=== PATIENT | female | born 1955 | race Caucasian/White ===

== ENCOUNTER → 2016-12-01 | Day surgery (SDC) | payer MEDICARE, OTHER ==
[~2016-12-01] MED LIST: ABILIFY PO; ADVAIR INH; ALBUTEROL; ALBUTEROL17 GM INH; ALBUTEROL2.5 MG/0.5 INH; ALPRAZOLAM PO; ALPRAZOLAM0.5 MG PO; AMLODIPINE BESY10 MG PO; AMLODIPINE BESYL5 MG PO; AMLODIPINE-VAL1 EAC1 PO; AMOXAPINE100 MG PO; ANEXSIA 7.5/3251 TA1 PO; APAP500 MG PO; ASPERDRINK81 MG PO; ASPIRIN EC81 M1 PO; ASPIRIN81 M1 PO; AVELOX400 M1 PO; AZITHROMYCIN250 MG PO; B COMPLEX1 CA1 PO; B COMPLEX1 TAB PO; BUPROPION HCL75 MG PO; BUSPIRONE HCL10 MG PO; CALCIUM + D 6001 TA1 PO; CALCIUM CITRAT1 EAC4 PO; CALCIUM CITRATE1 T11 PO; CALCIUM CITRATE1 T15 PO; CALTRATE 600+D PO; CARAFATE1 G PO; CHANTIX1 MG BC; CLONAZEPAM0.5 MG PO; COMBIVENT INH14.7 GM INH; DICYCLOMINE HCL10 MG PO; DICYCLOMINE HCL20 MG PO; DILTIAZEM 24HR120 M1 PO; DILTIAZEM 24HR360 M1 PO; EXFORGE HCT 101 EAC2 PO; FLAGYL PO; FLEXERIL10 MG PO; FLUOXETINE HCL20 M1 PO; FUROSEMIDE40 MG PO; GABAPENTIN300 M2 PO; GUAIFENESIN600 MG PO; HYDRALAZINE HCL25 MG PO; HYDROCODON-ACE1 EAC5 PO; HYZAAR 100-25 T1 TA1 PO; IBUPROFEN800 MG PO; INVEGA PO; ISOSORBIDE MONO30 M1 PO; KEFLEX500 MG PO; LEVAQUIN PO; LIPITOR PO; LIPITOR40 MG PO; LISINOPRIL PO; LODINE PO; LOPRESSOR PO; LORTAB 10-5001 EACH PO; LORTAB 10/500 T1 TAB PO; LORTAB 101 TAB 10/5 PO; LORTAB 5/500 TA1 TA1 PO; LORTAB 7.5-5001 TAB PO; LOVAZA1 G PO; MEDROL4 MG/DOSE- PO; MOBIC PO; MOTRIN400 MG PO; MUCINEX D ER T1 EAC1 PO; MULTI VITAMIN1 EACH PO; MULTI-DAY VITA1 EACH PO; NEURONTIN; NEXIUM PO; NITROGLYGERIN0.4 MG SL; NORCO 10-325 TA1 TAB PO; NORVASC PO; NORVASC10 MG PO; OMEGA 3 FISH OI1 CAP PO; OMEPRAZOLE20 M1 PO; PAMELOR25 M2 PO; PANTOPRAZOLE SO40 MG PO; PERCOCET 5-3251 TAB; PERCOCET 5-3251 TAB PO; PHENERGAN PO; PHENERGAN25 M1 PO; PHENERGAN25 MG PO; PHENTERMINE PO; PREDNISOLO15 MG/5 ML PO; PREDNISONE PO; PREDNISONE10 MG PO; PRESTIQ PO; PRILOSEC PO; PRISTIQ100 MG PO; PRISTIQ50 MG PO; PROTONIX PO; PROZAC PO; SEROQUEL; SEROQUEL PO; SERTRALINE HCL100 M1 PO; SOMA PO; SPIRIVA18 MCG INH; SPIRIVA18 MCG PO; STERAPRED5 MG/DOSE1 PO; SYMBICORT; SYMBICORT 160/4.6 GM INH; SYMBICORT INH; TESSALON200 MG PO; TIZANIDINE HCL2 M1 PO; TOPAMAX; TOPAMAX PO; TORADOL10 MG PO; TRAZODONE PO; TRIAMTERENE-HC1 EAC1 PO; VALIUM10 MG PO; VALSARTAN-HCTZ1 EAC1 PO; VIBRAMYCIN100 M1 PO; VITAL-D RX TABL1 TAB PO; WELLBUTRIN; WELLBUTRIN100 MG PO; XANAX0.5 MG PO; ZANAFLEX PO; ZEGERID40 MG/PKT PO; ZITHROMAX1 G/PKT PO
--- NOTE | ~2016-12-01 | OR ---
Unit #: [id number] #: [id number] Patient: ROSANNA FELDMAN [id number] [address] [place], [place] [address] [id number] O MR#: [id number] NAME: ROSANNA FELDMAN ROOM: Date of Procedure: 12/01/2016 Admission Date: 12/01/2016 Surgeon: Dallin Karimi M.D. : 1955 Attending Physician: Dallin Karimi M.D. Primary Care Physician: Deyanira Nickerson OPERATIVE REPORT PROCEDURE PERFORMED Colonoscopy with snare polypectomy. INDICATIONS FOR PROCEDURE The patient with history of colon polyps and also with history of colitis and stricture in the right colon, undergoing a repeat evaluation to look for healing and further polyps. MEDICATIONS Monitored anesthesia. POSTOPERATIVE FINDINGS 1. Polyp, ascending colon, 1 cm flat, snared and sent for histopathology. 2. Ascending colon shows a stricture. There was a small ulceration at the level of the stricture, however it was opened enough for the scope to pass easily. 3. Rest of the colonic mucosa was normal. Diverticulosis noted. 4. Small hemorrhoids. PLAN Follow up on the pathology report. If the patient gets symptomatic of bile obstruction, surgical options has to be considered. DESCRIPTION OF PROCEDURE The patient was explained of the procedure, risks, and benefits along with the risks and benefits of anesthesia. She was brought to the endoscopy room. Propofol anesthesia was given. Rectal exam was done, which was normal. Colonoscope was lubricated, passed up the rectum, advanced under direct vision all the way to the cecum. Cecum was identified by the ileocecal valve and the appendiceal orifice. The ascending colon polyp was snared and sent for histopathology. Stricture was noted as described. I continued to pull the scope out. Rest of the mucosa was normal and healthy. I retroflexed in the rectum, small hemorrhoids were seen. Scope was gently pulled out. She tolerated it well. No major complications seen. Dictated by... Virginia Rae/natl Unit #: [id number] #: [id number] Patient: ROSANNA FELDMAN TD: 12/02/2016 11:25 JOB #: [id number] CC: Berny Mccallum M.D. OPERATIVE REPORT Page 1 of 1 X Dallin Karimi MD PROCEDURE OPERATIVE NOTE
== END | disposition home or self-care (01) ==
LOC: COPS 06:54
DX: D12.2 Benign neoplasm of ascending colon (principal); K56.69 Other intestinal obstruction; K63.3 Ulcer of intestine; K57.30 Diverticulosis of large intestine without perforation or abscess without bleeding; K64.9 Unspecified hemorrhoids; Z86.010 Personal history of colon polyps; Z87.19 Personal history of other diseases of the digestive system; K21.9 Gastro-esophageal reflux disease without esophagitis; J44.9 Chronic obstructive pulmonary disease, unspecified; Z90.710 Acquired absence of both cervix and uterus; Z88.5 Allergy status to narcotic agent
CPT/HCPCS: 88302

== ENCOUNTER → 2017-01-05 | Outpatient (CLI) | payer MEDICARE, OTHER ==
--- NOTE | ~2017-01-05 | EKG ---
PATIENT: ROSANNA FELDMAN UNIT #: [id number] Ventricular Rate: 76 BPM Atrial Rate: 76 BPM P-R Interval: 152 ms QRS Duration: 86 ms Q-T Interval: 400 ms QTC Calculation(Bezet): 450 ms P [place]: 74 degrees Calculated R [place]: 84 degrees Calculated T [place]: 67 degrees Diagnosis Line: Normal sinus rhythm Diagnosis Line: Normal ECG Diagnosis Line: When compared with ECG of 17-MAY-2016 16:47, Diagnosis Line: No significant change was found Diagnosis Line: Confirmed by SANDY MARTINO MD ([id number]) on Diagnosis Line: 01/05/2017 11:25:09 PM INTERPRETING : DONNIE
[2017-01-05 11:41] LABS: HEMATOCRIT 43.8 % (35.0-45.0); MEAN CORPUSCULAR HEMOGLOBIN 27.4 PG (28-34); MEAN CORPUSCULAR HGB CONC 31.9 g/dL (30-36); MEAN PLATELET VOLUME 6.9 FL (6.5-11.5); RED BLOOD COUNT 5.09 X10e (3.90-5.30); RED CELL DISTRIBUTION WIDTH 14.6 % (11.0-15.5); WHITE BLOOD COUNT 7.7 X10e3 (4.0-10.5)
[2017-01-05 12:51] LABS: BUN/CREATININE RATIO 24.28; CALCIUM SERUM 10.2 mg/dL (8.4-10.2); CREATININE SERUM 0.7 mg/dL (0.6-1.4); GLOM FILT RATE Estimated 94.8 mL/min (>60)
[2017-01-05 12:59] LABS: POTASSIUM 5.9 mmol/L (3.5-5.1)
== END | disposition home or self-care (01) ==
LOC: CAMB 10:26
PROVIDERS: Orthopaedic Surgery
DX: Z01.818 Encounter for other preprocedural examination (principal); M92.61 Juvenile osteochondrosis of tarsus, right ankle
CPT/HCPCS: 36415; 80048; 85027; 93005

== ENCOUNTER → 2017-01-09 | Day surgery (SDC) | payer MEDICARE, OTHER ==
--- NOTE | ~2017-01-09 | OR ---
Unit #: [id number] #: [id number] Patient: ROSANNA RIVAS [id number] [address] [address] [id number] O MR#: [id number] NAME: ROSANNA RIVAS. ROOM: Date of Procedure: 01/10/2017 Admission Date: 01/09/2017 Surgeon: Rodrigue Hager M.D. : 1955 Community Outreach Coordinator(s): None. Attending Physician: Rodrigue Hager M.D. Primary Care Physician: Deyanira Nickerson Aprn PROCEDURE OPERATIVE NOTE PREOPERATIVE DIAGNOSES 1. Painful retained right calcaneus hardware. 2. 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 POSTOPERATIVE DIAGNOSIS 1. Painful retained right calcaneus hardware. 2. 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 Right calcaneus hardware removal. 2. Right calcaneal Michael deformity ostectomy. ANESTHESIA General endotracheal. COMPLICATIONS None. SPECIMENS None. DRAINS None. SURGICAL COMPLAINTS None. INDICATIONS FOR PROCEDURE Ms. Rivas is a 61-year-old female who roughly six months ago had a tongue type calcaneus fracture that was treated by my partner with ORIF. She had some residual deformity with significant pressure on the skin causing pain. The screws were also noted to cause discomfort in the patient's calcaneus. The fracture was well healed. The patient wished to have these screws surgical removed and the deformity shaved down. Risk, benefits, and alternatives of surgery were discussed with patient. Informed consent was obtained. The risks include but are not limited to infection, bleeding, nerve injury, blood clots, risk associated with anesthesia, need for further surgery, possibly . DETAILS OF PROCEDURE On 01/09/2017, the patient was seen in preoperative holding area where her surgical site is marked. Preoperative antibiotics were received. H and P Unit #: [id number] #: [id number] Patient: ROSANNA RIVAS and consent updated. She was taken to the operating room and provided general anesthesia. She was moved to the prone position carefully. All bony prominences were well padded. Head and neck kept in neutral position at all times. Right lower extremity was then prepped and draped in typical sterile fashion. Time-out performed confirming the correct surgical site and procedure. Esmarch used to exsanguinate the leg and a calf tourniquet was inflated to 250 mmHg. The prior posterior lateral calcaneal scar was incised. Full thickness down to bone to preserve skin and soft tissues. First screw was identified. It was subsequently removed with the washer. Fluoroscopy was brought in and the second screw was localized. A percutaneous incision was made over the second screw through the prior scar. Then the screw was again removed in a similar fashion. These were two 6.5 mm screws with washers. These were sent to pathology and will be given to the patient after analysis. At this point the hardware was removed. Final images were taken. The full thickness skin and soft tissue had been elevated through the posterolateral incision. The large Michael deformity noted. A bunion blade saw was used to resect the protruding calcaneus deformity, flush with the inferior portion of the calcaneus. Saw was taken all of the way across, followed by completion with an osteotome. Rongeur was used to remove the bone fragment. The edges of the residual bone were smoothed off with a rongeur. There was still some thickening superior at the Achilles insert due to prior scar tissue. This was not addressed due to the calcaneal insertion. Once the ostectomy was complete, the wound was thoroughly irrigated. Tourniquet released. Hemostasis noted. Deep tissue closed with 3-0 Vicryl suture, followed by 3.0 Nylon horizontal mattress sutures for the skin. The Xeroform, 4 x 4's, ABD pads, cast padding and well padded posterior splint was placed. The patient was subsequently awakened from general anesthesia in stable condition. She was taken to the PACU postoperatively. POSTOPERATIVE PLAN The patient will be weightbearing as tolerated with a splint on. She will keep the wound clean and dry. She will take a full dose of aspirin for two weeks and then can change back to her baby aspirin. She will follow up in the office in 10 to 14 days. No complications encountered during this surgical procedure. Dictated by... Rodrigue Hager M.D. FELICIA/yolanda TD: 01/10/2017 09:42 JOB #: [id number] PROCEDURE OPERATIVE NOTE Page 1 of 1 X X PROCEDURE OPERATIVE NOTE
--- NOTE | ~2017-01-09 | CR18 ---
[facility] A Service of [facility] & [facility] RADIOLOGY TEXT RESULTS PATIENT: ROSANNA FELDMAN LOCATION: [facility] : [birth year] UNIT #: [id number] AGE: [address]: Rodrigue Hager MD SEX: F ORDER DR: [id number] [facility] [address] [place], [place] [address] [id number] O MR#: [id number] Acc #: [id number] NAME: ROSANNA FELDMAN : 1955 SEX: F STUDY DATE/TIME: 01/09/2017 9:48 UNIT: [facility] ROOM: STUDY DESCRIPTION: CR Ankle 2 Views Rt Attending Physician: Rodrigue Hager M.D. Ordering Physician: Rodrigue Hager M.D. MEDICAL IMAGING REPORT This report is preliminary unless electronic signature is present EXAM Right ankle 01/09/2017 HISTORY 61-year-old female status post intraoperative hardware removal today. COMPARISON Right ankle 05/17/2016. FINDINGS 2 intraoperative fluoroscopic spot images demonstrate the ankle status post hardware removal. Images were interpreted intraoperatively by the attending surgeon. Total fluoroscopic time 0.18 seconds. Dictated by... Shravan Perez M.D. THIS IS AN ELECTRONICALLY VERIFIED REPORT Shravan Perez M.D. at 01/09/2017 6:38 PM MELANIE/vita TD: 01/09/2017 18:11 JOB #: [id number] MEDICAL IMAGING REPORT Page 1 of 1 COPY
== END | disposition home or self-care (01) ==
LOC: CSUR 06:51
DX: M92.61 Juvenile osteochondrosis of tarsus, right ankle (principal); M79.671 Pain in right foot; I10 Essential (primary) hypertension; E78.5 Hyperlipidemia, unspecified; J44.9 Chronic obstructive pulmonary disease, unspecified; E66.9 Obesity, unspecified; K21.9 Gastro-esophageal reflux disease without esophagitis; F17.210 Nicotine dependence, cigarettes, uncomplicated; Z68.29 Body mass index [BMI] 29.0-29.9, adult; Z85.43 Personal history of malignant neoplasm of ovary; Z87.01 Personal history of pneumonia (recurrent); Z88.5 Allergy status to narcotic agent; Z88.6 Allergy status to analgesic agent; Z88.8 Allergy status to other drugs, medicaments and biological substances; Z79.82 Long term (current) use of aspirin; Z79.891 Long term (current) use of opiate analgesic; Z79.899 Other long term (current) drug therapy; Z90.710 Acquired absence of both cervix and uterus; Z98.890 Other specified postprocedural states
CPT/HCPCS: 73600; 76000; 84132; 88300; J0330; J0690; J1885; J2250; J2710; J2765; J3010

== ENCOUNTER 2017-01-13 21:50 | Inpatient (IN) | payer MEDICARE, OTHER ==
--- NOTE | ~2017-01-13 | CR72 ---
[facility] A Service of [facility] & [facility] RADIOLOGY TEXT RESULTS PATIENT: ROSANNA FELDMAN LOCATION: [facility] 328-01 : [birth year] UNIT #: [id number] AGE: [address]: Julieta Baker MD SEX: F ORDER DR: [id number] [facility] [address] [place], [place] [address] [id number] I MR#: [id number] Acc #: [id number] NAME: ROSANNA FELDMAN : 1955 SEX: F STUDY DATE/TIME: 01/13/2017 21:48 UNIT: [address] ROOM: [facility] STUDY DESCRIPTION: CR Chest Single View Portable Attending Physician: Nba Felton M.D. Ordering Physician: Paramjit Kirkland M.D. Primary Care Physician: Deyanira Nickerson Aprn MEDICAL IMAGING REPORT This report is preliminary unless electronic signature is present EXAM Portable chest 01/13/2017 HISTORY Shortness of air, chronic back pain for 3 days. COMPARISON 03/12/2016 FINDINGS A portable view of the chest was obtained. Heart size and vascularity are normal. The lungs are clear and the bones are unremarkable. IMPRESSION No active disease. Dictated by... Cornelio Dior M.D. THIS IS AN ELECTRONICALLY VERIFIED REPORT Cornelio Dior M.D. at 01/15/2017 7:14 AM AMARILIS/lizeth TD: 01/14/2017 00:43 JOB #: [id number] MEDICAL IMAGING REPORT Page 1 of 1 COPY
--- NOTE | ~2017-01-13 | EKG ---
PATIENT: ROSANNA FELDMAN UNIT #: [id number] Ventricular Rate: 96 BPM Atrial Rate: 96 BPM P-R Interval: 152 ms QRS Duration: 88 ms Q-T Interval: 368 ms QTC Calculation(Bezet): 464 ms P [place]: 55 degrees Calculated R [place]: 58 degrees Calculated T [place]: 46 degrees Diagnosis Line: Sinus rhythm with Premature atrial complexes Diagnosis Line: Otherwise normal ECG Diagnosis Line: No previous ECGs available Diagnosis Line: Confirmed by JOAQUIN GODINEZ MD ([id number]) on 01/14/2017 Diagnosis Line: 4:09:48 PM INTERPRETING MD: HERBERT WAGNER
--- NOTE | ~2017-01-13 | CT16 ---
[facility] A Service [facility] RADIOLOGY TEXT RESULTS PATIENT: ROSANNA FELDMAN LOCATION: [facility] 328-01 : [birth year] UNIT #: [id number] AGE: [address]: Nba Felton MD SEX: F ORDER DR: [id number] [facility] [address] [place], [place] [address] [id number] I MR#: [id number] Acc #: [id number] NAME: ROSANNA FELDMAN. : 1955 SEX: F STUDY DATE/TIME: 01/13/2017 22:46 UNIT: [address] ROOM: [facility] STUDY DESCRIPTION: CT Angio Chest for PE Attending Physician: Nba Felton M.D. Ordering Physician: Paramjit Kirkland M.D. Primary Care Physician: Deyanira Nickerson Aprn MEDICAL IMAGING REPORT This report is preliminary unless electronic signature is present EXAM CT chest PE protocol. HISTORY Dyspnea. Mild chest pain, hypoxia symptoms began 4 days ago patient had right foot surgery 3-[address] chest 03/12/[address] exam was performed with one or more of the following radiation dose reduction techniques: automatic control, adjustment of mA and/or kV according to patient size, and iterative reconstruction. FINDINGS Axial images performed through the chest following IV contrast. 3-D coronal and sagittal reconstructed images reviewed at a workstation. Pulmonary parenchymal changes compatible with emphysema. A small amount of patchy pneumonitis left upper lobe. No effusions. Small amount of right basilar atelectasis. Trachea and bronchi unremarkable. No pulmonary embolus. Heart size within normal limits. Shotty adenopathy. Upper abdomen unremarkable. Osseous structures and thoracic inlet appear normal. IMPRESSION 1. Moderate paraseptal emphysema with a small amount of patchy pneumonitis left upper lobe could be infectious in etiology as well as a small focus in the superior segment right lower lobe. There is also a small amount of lingular right middle lobe and basilar atelectasis. [facility] A Service [facility] RADIOLOGY TEXT RESULTS PATIENT: ROSANNA FELDMAN [id number] : [birth year] UNIT #: [id number] AGE: [address]: Nba Felton MD SEX: F ORDER DR: 2. No evidence of pulmonary embolus. Dictated by... Sissy Hurd M.D. THIS IS AN ELECTRONICALLY VERIFIED REPORT Sissy Hurd M.D. at 01/14/2017 5:57 AM NAKUL/lizeth TD: 01/14/2017 01:57 JOB #: [id number] MEDICAL IMAGING REPORT Page 1 of 1 COPY
--- NOTE | ~2017-01-13 | HP ---
Unit #: [id number] #: [id number] Patient: ROSANNA FELDMAN [id number] [address] [place], [place] [address] [id number] I MR#: [id number] NAME: ROSANNA FELDMAN. ROOM: 328 Age: 61 Sex: F Admission Date: 01/13/2017 : 1955 Attending Physician: Julieta Baker M.D. Primary Care Physician: Deyanira Nickerson Aprn HISTORY AND PHYSICAL CHIEF COMPLAINT Shortness of breath for the last three days, recent right foot surgery. HISTORY OF PRESENT ILLNESS This is a 61-year-old lady with a past medical history of chronic obstructive pulmonary disease, history of bipolar anxiety, Burnham disease, hyperlipidemia, hypertension, irritable bowel syndrome, chronic back pain, fibromyalgia, history of fall with right calcaneus and distal fibular fracture status post ORIF in 05/2016. She had a recent right foot surgery last Sunday for removal of right calcaneus hardware and right calcaneus osteotomy. She came to the emergency room with a chief complaint of shortness of breath, which she describes the shortness of breath got worse over three days. She has been using a nebulizer inhaler at home with no improvement. She has been coughing mostly dry and wheezing. She was found to have diffuse wheezing in the emergency room. She has eventually been admitted for acute exacerbation of chronic obstructive pulmonary disease. She was found on ABG to be hypoxic. She denies chest pain. She denies nausea and vomiting, abdominal pain, diarrhea, constipation, or other complaints. She said she has been having dyspnea on exertion. She cannot walk a few steps without shortness of breath. She has been wheezing. She denies any other complaints. No headache. No loss of consciousness. PAST MEDICAL HISTORY 1. History of chronic obstructive pulmonary disease, non oxygen dependent. 2. Hypertension. 3. Hyperlipidemia. 4. History of bipolar disorder. 5. History of anxiety. 6. History of Burnham esophagus. 7. History of echocardiogram in the past in 2010 showing ejection fraction of 55% with mild mitral regurgitation. 8. History of irritable bowel syndrome. 9. Chronic back pain/fibromyalgia. PAST SURGICAL HISTORY 1. Right arm surgery. 2. Left clavicle surgery. 3. Bilateral carpal tunnel surgery. 4. Cervical lymph node excision. 5. History of hysterectomy. 6. History of fall with right calcaneus and right distal radius fracture status post ORIF in 05/2016. Unit #: [id number] #: [id number] Patient: ROSANNA FELDMAN. Recently she had a right calcaneus hardware removal and osteotomy on 01/09/2017. SOCIAL HISTORY The patient lives alone. She smokes at least a pack of cigarettes daily. She drinks at least two 32-ounces beers daily. She has a history of marijuana and cocaine in the past per old records. ALLERGIES Oxycodone, morphine, codeine. HOME MEDICATIONS 1. Fluoxetine 20 mg b.i.d. 2. Ventolin 2 puffs q.4 h. p.r.n. 3. Spiriva 1 HandiHaler daily. 4. Hydrocodone 10/325 mg 1 tablet daily. 5. BuSpar 10 mg t.i.d. 6. Amlodipine/losartan 10/160 one tablet daily. 7. Wellbutrin 100 mg daily. 8. Dicyclomine 10 mg q.i.d. p.r.n. 9. Phenergan 25 mg t.i.d. p.r.n. 10. Amlodipine 5 mg daily. 11. Protonix 40 mg b.i.d. 12. Multivitamin 1 tablet daily. 13. Aspirin 81 mg daily. 14. Flexeril 10 mg t.i.d. p.r.n. 15. Isosorbide 30 mg daily. 16. Lipitor 40 mg at bedtime. 17. Symbicort 2 puffs daily. REVIEW OF SYSTEMS CONSTITUTIONAL: No fever. No chills. CARDIOVASCULAR: No chest pain. No diaphoresis. PULMONARY: She reports cough, shortness of breath, wheezing. GENITOURINARY: No dysuria. No urgency. GI: No nausea, vomiting, diarrhea, constipation. NEUROLOGIC: No headache. No dizziness. SKIN: No rash. MUSCULOSKELETAL: She reports chronic back pain. Right lower leg pain. PHYSICAL EXAMINATION GENERAL: Middle-aged female lying in the bed comfortably. Currently not in any distress. She is alert, awake, oriented times three. VITALS: Currently temperature 98.3, heart rate 105, respiratory rate 15, blood pressure 114/99. HEENT: Pupils equal and reactive to light and accommodation. Head is normocephalic, atraumatic. NECK: Supple. No jugular venous distension. No cardiomegaly. No thyromegaly. LUNGS: Poor air entry with diffuse bilateral wheeze. HEART: S1 and S2. Regular rate and rhythm. Tachycardia. ABDOMEN: Soft, nontender and nondistended. Bowel sounds positive. EXTREMITIES: Right lower leg is positive in a cast. Left leg no cyanosis, clubbing or edema. NEUROLOGIC: No focal neurologic deficits. SKIN: No rash. PSYCHIATRIC: Normal mood and affect. Unit #: [id number] #: [id number] Patient: ROSANNA FELDMAN DIAGNOSTIC STUDIES LABORATORY: Lactic acid level is 0.8. Chemistry, sodium 138, potassium 3.7, chloride 100, glucose 107, BUN 10, creatinine 0.6, LFTs within normal limits. INR 1, BNP 39. ABG, pH 7.42, pO2 61, CO2 28, white blood cell count 7, hemoglobin 12, hematocrit 37, platelets 298. ASSESSMENT/PLAN 1. Acute exacerbation of chronic obstructive pulmonary disease with acute hypoxia. She does not have oxygen at home. Will admit the patient and start on oxygen to keep saturations more than 90. Start on nebulizer, IV Solu-Medrol, IV Levaquin, Mucinex. Will evaluate in a day or two for home O2. 2. History of hypertension. 3. History of hyperlipidemia in the past, currently sodium is 138. 4. History of bipolar anxiety. 5. History of Burnham disease. 6. Hyperlipidemia. 7. Recent right calcaneus hardware removal and right calcaneus osteotomy on Sunday. 8. Irritable bowel syndrome. 9. Chronic back pain/fibromyalgia. 10. Tobacco abuse. 11. Alcohol abuse. 12. DVT prophylaxis. Will place the patient on Lovenox. Will get D-dimer and if abnormal D-dimer will do a CT of the chest PE protocol. Dictated by Marcus Paniagua M.D. Amena TD: 01/14/2017 07:09 JOB #: [id number] HISTORY AND PHYSICAL Page 1 of 1 X X HISTORY AND PHYSICAL
--- NOTE | ~2017-01-13 | DS ---
Unit #: [id number] #: [id number] Patient: ROSANNA FELDMAN [id number] [address] [place], [place] [address] [id number] I MR#: [id number] NAME: ROSANNA FELDMAN. ROOM: [facility] Age: 61 Sex: F Admission Date: 01/13/2017 : 1955 Discharge Date: 01/15/2017 Attending Physician: Niraj Ly M.D. Primary Care Physician: Deyanira Nickerson DISCHARGE SUMMARY ADMITTING DIAGNOSIS Acute hypoxic respiratory failure. DISCHARGE DIAGNOSES 1. Acute hypoxic respiratory failure, secondary to chronic obstructive pulmonary disease exacerbation. 2. History of bipolar disorder. 3. History of anxiety. 4. History of Burnham's. 5. History of hyperlipidemia. 6. Hypertension. 7. Irritable bowel syndrome. 8. Chronic pain syndrome. 9. History of fall with recent right calcaneal and right fibula fracture, status post open reduction internal fixation in 2005, now nail removed. HISTORY OF PRESENT ILLNESS The patient is a 61-year-old obese lady, who recently had her nails removed in her right foot, presented to the emergency room with a chief complaint of shortness of breath on the 6th. HOSPITAL COURSE She was started on steroids, breathing treatments. She was also evaluated for a PE with a CT scan. CT of the chest was negative for any PE. She feels clinically better. She says her breathing is improving. She wants to go home. I requested her to follow with her primary care as an outpatient, ambulate as possible. She is a chronic smoker. I requested her to consider to quit smoking and will discharge her on tapering dose of oral steroids. She is saturating 93% on room air. PHYSICAL EXAMINATION On the day of the discharge, her physical examination: VITAL SIGNS: Temperature 97.6, pulse 103, respirations 18, blood pressure 163/97. GENERAL: Patient is alert, oriented x3. Lying in the bed in no acute distress. HEENT: Normocephalic and atraumatic. No icterus. PERRLA. Extraocular muscles intact. NECK: Supple. No JVD. HEART: S1, S2. Regular rate and rhythm. CHEST: Bilateral equal air entry. Clear to auscultation. ABDOMEN: Soft, nontender. EXTREMITIES: No edema. Normal pulses. On the right foot, she does still Unit #: [id number] #: [id number] Patient: ROSANNA FELDMAN have a cast in place. DISCHARGE MEDICATIONS 1. Prednisone tapering dose. 2. Zithromax 250 mg p.o. daily for three more days. These are the only two new medications. She will be continuing her rest of the home medications includin. Albuterol two puffs q.4 p.r.n. for shortness of breath. 2. Symbicort 160/4.5 mcg two puffs daily. 3. Spiriva 18 mcg inhalation daily. 4. Wellbutrin 100 mg daily. 5. Prozac 20 mg daily. 6. Phenergan 25 mg p.o. daily p.r.n. for nausea. Kindly note, I am not giving any prescription. She will get it from her primary care. 7. Dicyclomine 10 mg q.6 hours p.r.n. 8. BuSpar 10 mg t.i.d. 9. Norvasc 5 mg daily. 10. Amlodipine/Valsartan 10/160 mg one tab p.o. in the morning. 11. Mucinex over the counter 600 mg one tab four twice a day. 12. Lipitor 40 mg daily. 13. Multivitamin one capsule p.o. daily. 14. Aspirin 81 mg daily. 15. Hydrocodone/Tylenol 10/325 one tab p.o. b.i.d. Kindly note, I am not giving any prescription. She will get it from her primary care for the narcotics. 16. Protonix 40 mg daily. 17. Flexeril 10 mg p.o. three times a day. 18. Imdur 30 mg p.o. in the morning. FOLLOWUP She is instructed to follow with her primary care and quit smoking. Total time spent in her care, 35 minutes. Dictated by... Niraj Ly M.D. Ruddy TD: 01/15/2017 12:05 JOB #: [id number] DISCHARGE SUMMARY Page 1 of 1 X X DISCHARGE SUMMARY
[2017-01-13 21:41] LABS: BASOPHIL# 0.1 X10e3 (0-0.3); BASOPHIL% 0.9 % (0-2.5); EOSINOPHIL# 0.2 X10e3 (0-0.7); EOSINOPHIL% 2.2 % (0.0-7.0); HEMATOCRIT 37.9 % (35.0-45.0); HEMOGLOBIN 12.4 gm/dL (12.0-16.0); LYMPHOCYTE% 26.4 % (17.0-45.0); MEAN CELL VOLUME 84.3 FL (83-96); MEAN CORPUSCULAR HEMOGLOBIN 27.7 PG (28-34); MEAN CORPUSCULAR HGB CONC 32.8 g/dL (30-36); MEAN PLATELET VOLUME 6.7 FL (6.5-11.5); MONOCYTE# 0.5 X10e3 (0-1.0); MONOCYTE% 6.7 % (3.0-12.0); NEUTROPHIL# 4.9 X10e3 (1.5-7.1); NEUTROPHIL% 63.8 % (40-75); PLATELET COUNT 298 X10e3 (140-420); RED BLOOD COUNT 4.49 X10e (3.90-5.30); RED CELL DISTRIBUTION WIDTH 14.6 % (11.0-15.5); WHITE BLOOD COUNT 7.7 X10e3 (4.0-10.5)
[2017-01-13 21:45] LABS: DIFF IND NO
[~2017-01-13 21:50] MED LIST changes: -AZITHROMYCIN250 MG PO; -MUCINEX D ER T1 EAC1 PO; -PREDNISONE10 MG PO
[2017-01-13 21:56] LABS: PARTIAL THROMBOPLASTIN TIME 25.9 SECONDS (23.5-31.3)
[2017-01-13 22:02] LABS: ARTERIAL BLD GAS O2 SATURATION 85.6 % (90.0-100.0); ARTERIAL BLOOD GAS CARBOXY HB 4.9 %sat (0.0-9.0); ARTERIAL BLOOD GAS HCO3 28.8 mmol/L; ARTERIAL BLOOD GAS PCO2 44.2 mmHg (35.0-45.0); ARTERIAL BLOOD GAS pH 7.421 (7.350-7.450)
[2017-01-13 22:03] LABS: ARTERIAL BLOOD GAS ALLEN TEST NORMAL; ARTERIAL BLOOD GAS ART SITE RIGHT RADIAL; ARTERIAL BLOOD GAS DELIVERY NASAL CANNULA; ARTERIAL BLOOD GAS PO2 61.5 mmHg (80.0-100); ARTERIAL DRAW? YES
[2017-01-13 22:11] LABS: BILIRUBIN, DIRECT 0.1 mg/dL (0.0-0.2); BILIRUBIN,INDIRECT 0.5 mg/dL (0.0-0.9); BILIRUBIN,TOTAL 0.6 mg/dL (0.2-2.0); BUN/CREATININE RATIO 16.66; CALCIUM SERUM 9.1 mg/dL (8.4-10.2); CREATININE SERUM 0.6 mg/dL (0.6-1.4); GLOM FILT RATE Estimated 99.8 mL/min (>60); POTASSIUM 3.7 mmol/L (3.5-5.1); PROTEIN TOTAL SERUM 7.5 g/dL (6.0-8.3)
[2017-01-13 22:45] LABS: POC - CKMB 1.5 ng/mL (0.0-7.9); POC - TROPONIN <0.05 ng/mL (<=0.05)
[2017-01-13 23:02] LABS: POC - CKMB 1.2 ng/mL (0.0-7.9); POC - TROPONIN <0.05 ng/mL (<=0.05)
[2017-01-15 06:15] LABS: BUN/CREATININE RATIO 18.33; CALCIUM SERUM 9.1 mg/dL (8.4-10.2); CREATININE SERUM 0.6 mg/dL (0.6-1.4); GLOM FILT RATE Estimated 99.8 mL/min (>60); POTASSIUM 3.9 mmol/L (3.5-5.1)
[2017-01-15] MEDS ORDERED: MUCINEX D ER T1 EAC1 PO (12:55)
[2017-01-15] MEDS ORDERED: PREDNISONE10 MG PO (12:57)
[2017-01-15] MEDS ORDERED: AZITHROMYCIN250 MG PO (13:03)
== END 2017-01-15 14:03 | disposition home or self-care (01) | DRG 189 ==
LOC: CED 21:50 → CEDOF 22:45 → C3A PCU 01-14 00:17
PROVIDERS: Emergency Medicine; Internal Medicine
DX: J96.01 Acute respiratory failure with hypoxia (principal); J44.1 Chronic obstructive pulmonary disease with (acute) exacerbation; I10 Essential (primary) hypertension; F31.9 Bipolar disorder, unspecified; F41.9 Anxiety disorder, unspecified; E78.5 Hyperlipidemia, unspecified; K58.9 Irritable bowel syndrome, unspecified; G89.4 Chronic pain syndrome; M54.9 Dorsalgia, unspecified; E66.9 Obesity, unspecified; Z68.33 Body mass index [BMI] 33.0-33.9, adult; F17.210 Nicotine dependence, cigarettes, uncomplicated; M79.7 Fibromyalgia; Z88.5 Allergy status to narcotic agent; F10.10 Alcohol abuse, uncomplicated
CPT/HCPCS: 36600; 71010; 71275; 80048; 80076; 82553; 82803; 83605; 83880; 84484; 85025; 85379; 85610; 85730; 87040; 93005; 94640; 94664; 94760; 96361; 96374; 99291; J1650; J1956; J2060; J2930; J3411; J7042; Q9967